=== PATIENT | female | born 1945 | race Caucasian/White ===

== ENCOUNTER → 2018-07-31 | Outpatient (CLI) | payer OTHER, BC | LOC: FIMAGING 12:23 | PROVIDERS: ATTEND Internal Medicine | DX: R10.9 Unspecified abdominal pain (principal); R11.0 Nausea ==

== ENCOUNTER → 2018-08-15 | Outpatient (CLI) | payer OTHER, BC | LOC: FIMAGING 11:46 | PROVIDERS: ATTEND Internal Medicine | DX: Z12.31 Encounter for screening mammogram for malignant neoplasm of breast (principal) ==

== ENCOUNTER 2018-08-23 14:41 | Emergency (ER) | payer OTHER, BC ==
--- NOTE | 2018-08-23 15:02 | EDPHY ---
H & P Stated Complaint: word finding difficulty Time Seen by Provider: 08/23/18 15:02 HPI/ROS: CHIEF COMPLAINT: Confusion, abnormal speech HISTORY OF PRESENT ILLNESS: The patient presents to the ED with increasing confusion abnormal speech for the past several days. The patient denies any chest pain or shortness of breath. She denies any focal numbness or weakness. The patient denies dysuria. The patient is accompanied by her daughter. There has been no history of fever, vomiting or acute abdominal pain. There have been no recent changes to medication other than the discontinuing of methotrexate several weeks ago for presumed connective tissue disorder. REVIEW OF SYSTEMS: A comprehensive 10 point review of systems is otherwise negative aside from elements mentioned in the history of present illness. Source: Patient - Personal History Current Tetanus/Diphtheria Vaccine: Yes Current Tetanus Diphtheria and Acellular Pertussis (TDAP): Yes - Medical/Surgical History Hx Asthma: No Hx Chronic Respiratory Disease: No Hx Diabetes: Yes Hx Cardiac Disease: No Hx Renal Disease: No Hx Cirrhosis: No Hx Alcoholism: No Hx HIV/AIDS: No Hx Splenectomy or Spleen Trauma: No Other PMH: HTN, DM, CKD stage 3 - Social History Smoking Status: Never smoked - Physical Exam Exam: General Appearance: Alert, no distress Eyes: Pupils equal and round no pallor or injection ENT, Mouth: Mucous membranes moist Respiratory: There are no retractions, lungs are clear to auscultation Cardiovascular: Regular rate and rhythm Gastrointestinal: Abdomen is soft and nontender, no masses, bowel sounds normal Neurological: Alert and orientedx1, moves all 4 extremities with 5/5 strength, cranial nerves 2-12 intact, patient appears to be somewhat confused with mild dysarthria noted Skin: Warm and dry, no rashes Musculoskeletal: Neck is supple nontender Extremities: symmetrical, full range of motion Psychiatric: Patient is oriented X 3, there is no agitation Constitutional: Initial Vital Signs Temperature (C) 36.8 C 08/23/18 14:49 Heart Rate 106 H 08/23/18 14:49 Respiratory Rate 16 08/23/18 14:49 Blood Pressure 166/105 H 08/23/18 14:49 O2 Sat (%) 96 08/23/18 14:49 O2 Delivery Mode Room Air Allergies/Adverse Reactions: iodine Allergy (Verified 08/23/18 14:49) latex Allergy (Verified 08/23/18 14:49) Penicillins Allergy (Verified 08/23/18 14:49) flu vaccine Allergy (Uncoded 08/23/18 14:49) Home Medications: Medication Instructions Recorded levOFLOXACIN [Levaquin] 500 mg PO DAILY #7 tab 08/23/18 Medical Decision Making - Diagnostics EKG Interpretation: EKG: Complete interpretation has been separately recorded in the [facility] archive. Summary impression: Sinus rhythm, rate 89, nonspecific T-wave changes present. Imaging Results: Imaging Impressions Brain MRI 08/23/18 16:02 Impression: Moderate periventricular and deep hemispheric white matter change, which is nonspecific and can be seen with small vessel ischemic disease. No evidence for acute infarct. Mild generalized cerebral atrophy. Results called and discussed with Dr. Ulices Wilkes on August 23, 2018 at 1724 hours. ED Course/Re-evaluation: The patient presents the emergency department with mild disorientation. The patient is noted to have a slight expressive aphasia. She has not had any symptoms of fever or urinary tract infection. No recent significant medication changes noted. The patient was taken for a brain MRI which demonstrated no evidence of an acute stroke. Metabolic workup is unrevealing. Patient informed of the results of MRI study at 5:45 p.m.. Still awaiting urinalysis. Urinalysis does demonstrate evidence of an infection. Patient is given 1 g of IV ceftriaxone. The patient is picture is likely consistent with mild encephalopathy from a UTI. She would like to be treated as an outpatient. Patient will be discharged home with a prescription for Levaquin Plan will be for follow-up with primary care and return to the ED for any worsening symptoms. Differential Diagnosis: Differential diagnosis considered includes dehydration, stroke, TIA, metabolic abnormality, urinary tract infection, DOUGH PANNER tumor - Data Points Laboratory Results: Laboratory Results 08/23/18 15:20 08/23/18 15:20 08/23/18 08/23/18 08/23/18 17:25 15:26 15:20 WBC RBC Hgb POC Hgb 11.9 gm/dL L gm/dL (12.6-16.3) Hct POC Hct 35 % L % (38-47) MCV MCH MCHC RDW Plt Count MPV Neut % (Auto) Lymph % (Auto) [place] % (Auto) Eos % (Auto) Baso % (Auto) Nucleat RBC Rel Count Absolute Neuts (auto) Absolute Lymphs (auto) Absolute Monos (auto) Absolute Eos (auto) Absolute Basos (auto) Absolute Nucleated RBC Immature Gran % Immature Gran # POC Sodium 141 mEq/L mEq/L (135-145) Sodium 139 mEq/L mEq/L (135-145) POC Potassium 3.8 mEq/L mEq/L (3.3-5.0) Potassium 4.1 mEq/L mEq/L (3.3-5.0) POC Chloride 108 mEq/L mEq/L (97-110) Chloride 107 mEq/L mEq/L (97-110) Carbon Dioxide 21 mEq/l L mEq/l (22-31) Anion Gap 11 mEq/L mEq/L (6-14) POC BUN 19 mg/dL mg/dL (7-23) BUN 19 mg/dL mg/dL (7-23) Creatinine 1.1 mg/dL H mg/dL (0.6-1.0) POC Creatinine 1.0 mg/dL mg/dL (0.6-1.0) Estimated GFR 49 Glucose 229 mg/dL H mg/dL (70-100) POC Glucose 234 mg/dL H mg/dL (70-100) Calcium 9.7 mg/dL mg/dL (8.5-10.4) Urine Color YELLOW Urine Appearance HAZY Urine pH 5.0 (5.0-7.5) Ur Specific [place] 1.021 (1.002-1.030) Urine Protein 1+ H (NEGATIVE) Urine Ketones NEGATIVE (NEGATIVE) Urine Blood NEGATIVE (NEGATIVE) Urine Nitrate NEGATIVE (NEGATIVE) Urine Bilirubin NEGATIVE (NEGATIVE) Urine Urobilinogen NEGATIVE EU EU (0.2-1.0) Ur Leukocyte Esterase TRACE H (NEGATIVE) Urine RBC 1-3 /hpf /hpf (0-3) Urine WBC 10-15 /hpf H /hpf (0-3) Ur Epithelial Cells TRACE /lpf /lpf (NONE-1+) Hyaline Casts 1-5 /lpf /lpf (0-1) Urine Mucus TRACE /lpf /lpf (NONE-1+) Urine Glucose 1+ H (NEGATIVE) 08/23/18 15:20 WBC 7.82 10^3/uL 10^3/uL (3.80-9.50) RBC 3.94 10^6/uL L 10^6/uL (4.18-5.33) Hgb 11.0 g/dL L g/dL (12.6-16.3) POC Hgb Hct 35.0 % L % (38.0-47.0) POC Hct MCV 88.8 fL fL (81.5-99.8) MCH 27.9 pg pg (27.9-34.1) MCHC 31.4 g/dL L g/dL (32.4-36.7) RDW 16.7 % H % (11.5-15.2) Plt Count 236 10^3/uL 10^3/uL (150-400) MPV 9.7 fL fL (8.7-11.7) Neut % (Auto) 48.6 % % (39.3-74.2) Lymph % (Auto) 38.7 % % (15.0-45.0) Kern % (Auto) 7.3 % % (4.5-13.0) Eos % (Auto) 4.7 % % (0.6-7.6) Baso % (Auto) 0.6 % % (0.3-1.7) Nucleat RBC Rel Count 0.0 % % (0.0-0.2) Absolute Neuts (auto) 3.79 10^3/uL 10^3/uL (1.70-6.50) Absolute Lymphs (auto) 3.03 10^3/uL H 10^3/uL (1.00-3.00) Absolute Monos (auto) 0.57 10^3/uL 10^3/uL (0.30-0.80) Absolute Eos (auto) 0.37 10^3/uL 10^3/uL (0.03-0.40) Absolute Basos (auto) 0.05 10^3/uL 10^3/uL (0.02-0.10) Absolute Nucleated RBC 0.00 10^3/uL 10^3/uL (0-0.01) Immature Gran % 0.1 % % (0.0-1.1) Immature Gran # 0.01 10^3/uL 10^3/uL (0.00-0.10) POC Sodium Sodium POC Potassium Potassium POC Chloride Chloride Carbon Dioxide Anion Gap POC BUN BUN Creatinine POC Creatinine Estimated GFR Glucose POC Glucose Calcium Urine Color Urine Appearance Urine pH Ur Specific [place] Urine Protein Urine Ketones Urine Blood Urine Nitrate Urine Bilirubin Urine Urobilinogen Ur Leukocyte Esterase Urine RBC Urine WBC Ur Epithelial Cells Hyaline Casts Urine Mucus Urine Glucose Point of Care Test Results: Chemistry 08/23/18 15:26 POC Sodium 141 mEq/L mEq/L (135-145) POC Potassium 3.8 mEq/L mEq/L (3.3-5.0) POC Chloride 108 mEq/L mEq/L (97-110) POC BUN 19 mg/dL mg/dL (7-23) POC Creatinine 1.0 mg/dL mg/dL (0.6-1.0) POC Glucose 234 mg/dL H mg/dL (70-100) ISTAT H&H 08/23/18 15:26 POC Hgb 11.9 gm/dL L gm/dL (12.6-16.3) POC Hct 35 % L % (38-47) Departure - Departure Disposition: Home, Routine, Self-Care Clinical Impression: Urinary tract infection Condition: Good Instructions: Urinary Tract Infection in Women (DC) Additional Instructions: 1. Please take antibiotics as directed for next 7 days. 2. Return to the ED for any fever, abdominal pain, vomiting, worsening confusion or other concerns. 3. Please follow-up with your primary care provider as needed. Referrals: Clayton Mandujano MD [Primary Care Provider] - As per Instructions Prescriptions: levOFLOXACIN [Levaquin] 500 mg PO DAILY #7 tab
[2018-08-23 15:32] LABS: PLATELET COUNT 236 10^3/uL (150-400)
--- NOTE | 2018-08-23 17:44 | CPEKG ---
Test Reason : OPEN Blood Pressure : / mmHG Vent. Rate : 089 BPM Atrial Rate : 089 BPM P-R Int : 167 ms QRS Dur : 092 ms QT Int : 407 ms P-R-T Axes : 037 -03 013 degrees QTc Int : 496 ms Sinus rhythm Borderline T abnormalities, anterior leads Borderline prolonged QT interval Confirmed by Ulices Wilkes ([id number]) on 08/23/2018 5:43:29 PM Referred By: Confirmed By:Ulices Wilkes
[2018-08-23 18:43] VITALS: BP 178/102
== END 2018-08-23 18:55 | disposition home or self-care (01) ==
DX: N39.0 Urinary tract infection, site not specified (principal); R41.0 Disorientation, unspecified; R47.89 Other speech disturbances; I12.9 Hypertensive chronic kidney disease with stage 1 through stage 4 chronic kidney disease, or unspecified chronic kidney disease; E11.9 Type 2 diabetes mellitus without complications; N18.3 Chronic kidney disease, stage 3 (moderate)
CPT/HCPCS: 70551; 93005; 96365; 99285; J0696; 82435-PO; 82565-PO; 82947-PO; 84132-PO; 84295-PO; 84520-PO; 85014-PO

== ENCOUNTER → 2018-08-31 | Outpatient (CLI) | payer OTHER, BC | LOC: FIMAGING 10:01 | PROVIDERS: ATTEND Internal Medicine | DX: N63.13 Unspecified lump in the right breast, lower outer quadrant (principal) ==

== ENCOUNTER 2018-09-17 15:50 | Observation (INO) | payer OTHER, BC ==
--- NOTE | 2018-09-17 16:15 | EDPHY ---
H & P Time Seen by Provider: 09/17/18 15:57 HPI/ROS: CHIEF COMPLAINT: Syncope HISTORY OF PRESENT ILLNESS: The patient is a 73-year-old female who presents emergency department after having a syncopal episode. Patient was in the grocery store with her . She felt suddenly weak. She told her that she would wait while he completed his shopping. The next thing she knew some was holding her head on the ground. She states that she struck her head when she fell. She has no headache at this time. No word-finding difficulty visual change. She denies any focal weakness or numbness. She had no chest pain or shortness of breath. No nausea or vomiting. REVIEW OF SYSTEMS: 10 systems were reveiwed and are negative with the exception of the elements mentioned in the history of present illness. Past Medical/Surgical History: Includes hypertension, diabetes, chronic kidney disease Past surgical history: Includes recent lumpectomy Smoking Status: Never smoked Physical Exam: Vitals noted GENERAL: No acute distress, alert. HEENT: Eyes normal to inspection, normal pharynx, no signs of dehydration. NECK: Normal, supple. RESPIRATORY: Clear to auscultation bilaterally, no rales, rhonchi or wheezing. CVS: Regular rate and rhythm, no rubs, murmurs, or gallops. ABDOMEN: Soft, nontender, nondistended, no organomegaly. BACK: Normal to inspection, no CVA tenderness. SKIN: Normal color, no rash, warm, dry. No pallor. EXTREMITIES: No pedal edema, no calf tenderness, no Homans sign or cords, no joint swelling. NEURO/PSYCH: Higher functions: Alert and Oriented x2. Normal speech and cognition. Normal mood and affect. Cranial nerves: Normal as tested. Cerebellar: Normal as tested. Normal coordination. Peripheral exam: Normal motor exam. Normal sensation. Constitutional: Initial Vital Signs Temperature (C) 36.7 C 09/17/18 15:50 Heart Rate 68 09/17/18 15:50 Respiratory Rate 12 09/17/18 15:50 Blood Pressure 107/68 09/17/18 15:50 O2 Sat (%) 95 09/17/18 15:50 O2 Delivery Mode Room Air Allergies/Adverse Reactions: iodine Allergy (Verified 08/23/18 14:49) latex Allergy (Verified 08/23/18 14:49) Penicillins Allergy (Verified 08/23/18 14:49) flu vaccine Allergy (Uncoded 08/23/18 14:49) Home Medications: Medication Instructions Recorded Metformin 1000 mg 09/17/18 Medical Decision Making - Diagnostics Imaging Results: Imaging Impressions Chest X-Ray 09/17/18 16:16 Impression: 1. No active cardiopulmonary disease seen. Head CT 09/17/18 16:16 Impression: 1. Mild atrophy. 2. No acute hemorrhage, hydrocephalus, or mass effect. 3. Cerebrovascular atherosclerosis. 4. No definite acute infarct. 5. Moderate microvascular ischemic gliosis. 6. No skull fracture. Findings and recommendations discussed with Emergency Department physician, BILL FERRELL at 16:36 hour, 09/17/2018. Final report concurs with initial preliminary interpretation. ED Course/Re-evaluation: In the emergency department I discussed possible etiologies with the patient. Answered all her questions. Laboratory studies, EKG and head CT were ordered. 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 This will causes her to be chronically anemic. I reviewed the patient's hospital record. She was admitted to the emergency department 08/23/2018 for confusion and abnormal speech. She subsequently had an MRI which did not show CVA. EKG shows normal sinus rhythm, normal rate, normal axis, normal intervals. There are no ST or T-wave abnormalities. EKG is normal as interpreted by me. CBC is unremarkable. Coags are normal. Patient's sodium slightly low 134. Creatinine mildly elevated at 1.4. LFTs are normal. Troponin is 0. Lipase is 166. Head CT: Please refer the dictated report. No traumatic injury. I discussed case with Dr. Hair from the hospitalist service. She will admit the patient. I discussed the plan with the patient answered all her questions. Differential Diagnosis: My differential includes but is not limited to ACS, acute SD, electrolyte abnormality, sugar abnormality, anemia, dissection, aneurysm, CVA - Data Points Laboratory Results: Laboratory Results 09/17/18 16:06 09/17/18 08:41 09/17/18 09/17/18 09/17/18 17:03 16:06 08:41 WBC 8.80 10^3/uL 10^3/uL (3.80-9.50) RBC 4.46 10^6/uL 10^6/uL (4.18-5.33) Hgb 12.5 g/dL L g/dL (12.6-16.3) Hct 37.6 % L % (38.0-47.0) MCV 84.3 fL fL (81.5-99.8) MCH 28.0 pg pg (27.9-34.1) MCHC 33.2 g/dL g/dL (32.4-36.7) RDW 14.9 % % (11.5-15.2) Plt Count 266 10^3/uL 10^3/uL (150-400) MPV 10.1 fL fL (8.7-11.7) Neut % (Auto) 54.2 % % (39.3-74.2) Lymph % (Auto) 36.0 % % (15.0-45.0) Story % (Auto) 5.7 % % (4.5-13.0) Eos % (Auto) 3.6 % % (0.6-7.6) Baso % (Auto) 0.3 % % (0.3-1.7) Nucleat RBC Rel Count 0.0 % % (0.0-0.2) Absolute Neuts (auto) 4.76 10^3/uL 10^3/uL (1.70-6.50) Absolute Lymphs (auto) 3.17 10^3/uL H 10^3/uL (1.00-3.00) Absolute Monos (auto) 0.50 10^3/uL 10^3/uL (0.30-0.80) Absolute Eos (auto) 0.32 10^3/uL 10^3/uL (0.03-0.40) Absolute Basos (auto) 0.03 10^3/uL 10^3/uL (0.02-0.10) Absolute Nucleated RBC 0.00 10^3/uL 10^3/uL (0-0.01) Immature Gran % 0.2 % % (0.0-1.1) Immature Gran # 0.02 10^3/uL 10^3/uL (0.00-0.10) PT INR APTT Sodium 134 mEq/L L mEq/L (135-145) Potassium 4.4 mEq/L mEq/L (3.3-5.0) Chloride 101 mEq/L mEq/L (97-110) Carbon Dioxide 21 mEq/l L mEq/l (22-31) Anion Gap 12 mEq/L mEq/L (6-14) BUN 25 mg/dL H mg/dL (7-23) Creatinine 1.4 mg/dL H mg/dL (0.6-1.0) Estimated GFR 37 Glucose 292 mg/dL H mg/dL (70-100) Calcium 9.5 mg/dL mg/dL (8.5-10.4) Total Bilirubin 0.8 mg/dL mg/dL (0.1-1.4) Conjugated Bilirubin 0.3 mg/dL mg/dL (0.0-0.5) Unconjugated Bilirubin 0.5 mg/dL mg/dL (0.0-1.1) AST 23 IU/L IU/L (14-46) ALT 22 IU/L IU/L (9-52) Alkaline Phosphatase 109 IU/L IU/L (38-126) POC Troponin I 0.00 ng/mL ng/mL (0.00-0.08) NT-Pro-B Natriuret Pep < 11 pg/mL pg/mL (0-125) Total Protein 8.0 g/dL g/dL (6.3-8.2) Albumin 4.3 g/dL g/dL (3.5-5.0) Lipase 166 IU/L IU/L (23-300) 09/17/18 08:41 WBC RBC Hgb Hct MCV MCH MCHC RDW Plt Count MPV Neut % (Auto) Lymph % (Auto) Story % (Auto) Eos % (Auto) Baso % (Auto) Nucleat RBC Rel Count Absolute Neuts (auto) Absolute Lymphs (auto) Absolute Monos (auto) Absolute Eos (auto) Absolute Basos (auto) Absolute Nucleated RBC Immature Gran % Immature Gran # PT 13.1 SEC SEC (12.0-15.0) INR 0.97 (0.83-1.16) APTT 28.3 SEC SEC (23.0-38.0) Sodium Potassium Chloride Carbon Dioxide Anion Gap BUN Creatinine Estimated GFR Glucose Calcium Total Bilirubin Conjugated Bilirubin Unconjugated Bilirubin AST ALT Alkaline Phosphatase POC Troponin I NT-Pro-B Natriuret Pep Total Protein Albumin Lipase Medications Given: Discontinued Medications Sodium Chloride (Ns) 500 mls @ 1,000 mls/hr IV EDNOW ONE PRN Reason: Protocol Stop: 09/17/18 16:45 Last Admin: 09/17/18 17:00 Dose: 500 mls Point of Care Test Results: Chemistry 09/17/18 17:03 POC Troponin I 0.00 ng/mL ng/mL (0.00-0.08) Departure - Departure Disposition: [facility] Inpatient Acute Clinical Impression: Syncope Qualifiers: Syncope type: unspecified Qualified Code(s): R55 - Syncope and collapse Condition: Good Referrals: Patient,NotPresent [Unknown] - As per Instructions
[2018-09-17] MEDS ORDERED: NS 500 ML IV ONE (16:16)
[2018-09-17 16:23] LABS: PLATELET COUNT 266 10^3/uL (150-400)
[2018-09-17 16:41] LABS: INR 0.97 (0.83-1.16); PROTIME(PATIENT) 13.1 SEC (12.0-15.0)
[2018-09-17] MEDS ORDERED: HYDROmorphONE/DILAUDID 1 MG/ML INJ IVP PRN (17:43)
[2018-09-17] MEDS ORDERED: ONDANSETRON 4 MG/2 ML VIAL IVP PRN (17:43)
[2018-09-17] MEDS ORDERED: ACETAMINOPHEN 325 MG TAB PO PRN (17:43)
[2018-09-17] MEDS ORDERED: oxyCODONE IR 5 MG TAB PO PRN (17:43)
[2018-09-17] MEDS ORDERED: ONDANSETRON DISINTEGRATING 4 MG TAB PO PRN (17:43)
[2018-09-17] MEDS ORDERED: D50W 25 GM/50 ML SYR IVP PRN (18:31)
--- NOTE | 2018-09-17 18:37 | PDGENHP ---
<Kati Correa - Last Filed: 09/17/18 19:12> History and Physical - Chief Complaint "I fell down." - History of Present Illness 73 y/o female with recent right breast lumpectomy presents to the ED after sustaining mechanical fall d/t syncopal episode. Subsequently, she hit the back of her head and LOC. The fall was witnessed by her , Cirilo, while at the grocery store. She was pushing the cart and began to feel weak and dizzy , telling Cirilo she would wait for him at the front while he continues to shop. The next thing she knew, she woke up with Cirilo holding her head. She denies vision changes, lightheadedness, chest pains, SOB, N/V, fever, chills, dysuria. She is alert and oriented. No neuro abnormalities observed. Denies pain. BUE/BLE full ROM, BLE motor strength 4/5. Head CT: No traumatic injury. EKG: NSR CXR: No active cardiopulmonary processes. On 08/23/18, she was seen in the ED for increased confusion and weakness. She had a UTI and was treated with Levaquin PO and discharged from ED. Work up for CVA was negative. Past Medical/Surgical History 1. Hypertension 2. Diabetes 3. CKD III 4. Recent right lumpectomy 5. Dermatomyositis Social 1. , Cirilo, and pt live in [place] 2. Denies tobacco or illicit drug use. Rarely drinks alcohol. Vital Signs 141/77 68 HR 14 Respirations 96% RA 36.7c History Information - Allergies/Home Medication List Allergies/Adverse Reactions: iodine Allergy (Verified 08/23/18 14:49) latex Allergy (Verified 08/23/18 14:49) Penicillins Allergy (Verified 08/23/18 14:49) flu vaccine Allergy (Uncoded 08/23/18 14:49) Home Medications: Atorvastatin Calcium [Lipitor 10 mg (*)] 10 mg PO DAILY 09/17/18 [Last Taken 12/31] Bisoprolol/Hctz 10/6.25MG [Ziac 10/6.25MG (*)] 1 each PO DAILY 09/17/18 [Last Taken 09/17/18] Herbals/Supplements -Info Only 1 ea PO DAILY 09/17/18 [Last Taken Unknown] Levothyroxine [Synthroid 75 mcg (*)] 75 mcg PO DAILY06 09/17/18 [Last Taken 12/31] Metformin HCl [Metformin 1000 mg] 1,000 mg PO DAILY 09/17/18 [Last Taken ] hydrOXYzine HCL [hydrOXYzine HCL (RX)] 25 mg PO Q8 PRN 09/17/18 [Last Taken 12/31] I have personally reviewed and updated: family history, medical history, social history, surgical history Past Medical History: See HPI List - Surgical History Additional surgical history: See HPI List - Family History Positive for: non-pertinent - Social History Smoking Status: Never smoked Alcohol Use: Rarely Drug Use: None Review of Systems Review of Systems: ROS: 10pt was reviewed & negative except for what was stated in HPI & below Constitutional: Reports: recent injury EENMT: Reports: no symptoms Cardiac: Reports: no symptoms Respiratory: Reports: no symptoms Gastrointestinal: Reports: no symptoms Genitourinary: Reports: no symptoms Muscolosketal: Reports: no symptoms Skin: Reports: no symptoms Neurological: Reports: weakness Hematologic/Lymphatic: Reports: no symptoms Immunologic/Allergy: Reports: no symptoms Physical Exam Physical Exam: Lab results and imaging reviewed Temp Pulse Resp BP Pulse Ox 36.7 C 68 14 141/77 H 96 09/17/18 17:54 09/17/18 17:54 09/17/18 17:54 09/17/18 17:54 09/17/18 17:54 Constitutional: no apparent distress, appears nourished, not in pain Eyes: PERRL, anicteric sclera, EOMI Ears, Nose, Mouth, Throat: moist mucous membranes, hearing normal, ears appear normal, no oral mucosal ulcers Cardiovascular: regular rate and rhythym, no murmur, rub, or gallop, No edema Peripheral Pulses: 2+: dorsalis-pedis (R) (Radial 2+), dorsalis-pedis (L) ( Radial 2+) Respiratory: no respiratory distress, no rales or rhonchi, clear to auscultation Gastrointestinal: soft, non-tender abdomen, no palpable masses, other ( Hypoactive bowel sounds) Skin: warm, normal color, no rashes or abrasions, no fluctuance, no induration, No mottled Musculoskeletal: no muscle tenderness, normal joint ROM, no joint effusions, generalized weakness, other (BLE motor strength 4/5) Neurologic: AAOx3, sensation intact bilaterally, weakness, CN II-XII Intact Psychiatric: interacting appropriately, not anxious, not encephalopathic, thought process linear Lymph, Heme, Immunologic: no cervical LAD, no supraclavicular LAD Lab Data & Imaging Review 09/17/18 16:06 09/17/18 08:41 WBC 8.80 10^3/uL (3.80-9.50) 09/17/18 16:06 RBC 4.46 10^6/uL (4.18-5.33) 09/17/18 16:06 Hgb 12.5 g/dL (12.6-16.3) L 09/17/18 16:06 Hct 37.6 % (38.0-47.0) L 09/17/18 16:06 MCV 84.3 fL (81.5-99.8) 09/17/18 16:06 MCH 28.0 pg (27.9-34.1) 09/17/18 16:06 MCHC 33.2 g/dL (32.4-36.7) 09/17/18 16:06 RDW 14.9 % (11.5-15.2) 09/17/18 16:06 Plt Count 266 10^3/uL (150-400) 09/17/18 16:06 MPV 10.1 fL (8.7-11.7) 09/17/18 16:06 Neut % (Auto) 54.2 % (39.3-74.2) 09/17/18 16:06 Lymph % (Auto) 36.0 % (15.0-45.0) 09/17/18 16:06 [place] % (Auto) 5.7 % (4.5-13.0) 09/17/18 16:06 Eos % (Auto) 3.6 % (0.6-7.6) 09/17/18 16:06 Baso % (Auto) 0.3 % (0.3-1.7) 09/17/18 16:06 Nucleat RBC Rel Count 0.0 % (0.0-0.2) 09/17/18 16:06 Absolute Neuts (auto) 4.76 10^3/uL (1.70-6.50) 09/17/18 16:06 Absolute Lymphs (auto) 3.17 10^3/uL (1.00-3.00) H 09/17/18 16:06 Absolute Monos (auto) 0.50 10^3/uL (0.30-0.80) 09/17/18 16:06 Absolute Eos (auto) 0.32 10^3/uL (0.03-0.40) 09/17/18 16:06 Absolute Basos (auto) 0.03 10^3/uL (0.02-0.10) 09/17/18 16:06 Absolute Nucleated RBC 0.00 10^3/uL (0-0.01) 09/17/18 16:06 Immature Gran % 0.2 % (0.0-1.1) 09/17/18 16:06 Immature Gran # 0.02 10^3/uL (0.00-0.10) 09/17/18 16:06 PT 13.1 SEC (12.0-15.0) 09/17/18 08:41 INR 0.97 (0.83-1.16) 09/17/18 08:41 APTT 28.3 SEC (23.0-38.0) 09/17/18 08:41 Sodium 134 mEq/L (135-145) L 09/17/18 08:41 Potassium 4.4 mEq/L (3.3-5.0) 09/17/18 08:41 Chloride 101 mEq/L (97-110) 09/17/18 08:41 Carbon Dioxide 21 mEq/l (22-31) L 09/17/18 08:41 Anion Gap 12 mEq/L (6-14) 09/17/18 08:41 BUN 25 mg/dL (7-23) H 09/17/18 08:41 Creatinine 1.4 mg/dL (0.6-1.0) H 09/17/18 08:41 Estimated GFR 37 09/17/18 08:41 Glucose 292 mg/dL (70-100) H 09/17/18 08:41 Calcium 9.5 mg/dL (8.5-10.4) 09/17/18 08:41 Total Bilirubin 0.8 mg/dL (0.1-1.4) 09/17/18 08:41 Conjugated Bilirubin 0.3 mg/dL (0.0-0.5) 09/17/18 08:41 Unconjugated Bilirubin 0.5 mg/dL (0.0-1.1) 09/17/18 08:41 AST 23 IU/L (14-46) 09/17/18 08:41 ALT 22 IU/L (9-52) 09/17/18 08:41 Alkaline Phosphatase 109 IU/L (38-126) 09/17/18 08:41 POC Troponin I 0.00 ng/mL (0.00-0.08) 09/17/18 17:03 NT-Pro-B Natriuret Pep < 11 pg/mL (0-125) 09/17/18 08:41 Total Protein 8.0 g/dL (6.3-8.2) 09/17/18 08:41 Albumin 4.3 g/dL (3.5-5.0) 09/17/18 08:41 Lipase 166 IU/L (23-300) 09/17/18 08:41 Assessment & Plan Plan: 73 y/o female presents today after a syncopal episode. 1. Syncope -Echo -Orthostatic vitals one time -Tele monitoring -Cycle trop 2. Generalized weakness -PT/OT 3. Chronic anemia: per pt, this is d/t dermatomyositis. However, this is a possible cause to her syncope as symptom is weakness. -CRP pending -Sed Rate pending 4. Hyponatremic -Mild; 134 -IVF; CBC tomorrow 5. Hypertension -Continue to monitor 6. Diabetes -Holding metformin -Use insulin sliding scale Diet: Carb-Controlled VTE ppx: SCDs Code: Full Dispo: Admit to obs <Jimbo Hair - Last Filed: 09/17/18 22:05> History and Physical - History of Present Illness Review of Systems Review of Systems: Physical Exam Physical Exam: Temp Pulse Resp BP Pulse Ox 36.3 C 80 14 147/75 H 95 09/17/18 18:40 12 18:40 12 18:40 09/17/18 18:40 09/17/18 18:40 Lab Data & Imaging Review 09/17/18 20:10 09/17/18 08:41 WBC 8.80 10^3/uL (3.80-9.50) 09/17/18 16:06 RBC 4.46 10^6/uL (4.18-5.33) 09/17/18 16:06 Hgb 12.5 g/dL (12.6-16.3) L 09/17/18 16:06 Hct 38.4 % (38.0-47.0) 09/17/18 20:10 MCV 84.3 fL (81.5-99.8) 09/17/18 16:06 MCH 28.0 pg (27.9-34.1) 09/17/18 16:06 MCHC 33.2 g/dL (32.4-36.7) 09/17/18 16:06 RDW 14.9 % (11.5-15.2) 09/17/18 16:06 Plt Count 266 10^3/uL (150-400) 09/17/18 16:06 MPV 10.1 fL (8.7-11.7) 09/17/18 16:06 Neut % (Auto) 54.2 % (39.3-74.2) 09/17/18 16:06 Lymph % (Auto) 36.0 % (15.0-45.0) 09/17/18 16:06 [place] % (Auto) 5.7 % (4.5-13.0) 09/17/18 16:06 Eos % (Auto) 3.6 % (0.6-7.6) 09/17/18 16:06 Baso % (Auto) 0.3 % (0.3-1.7) 09/17/18 16:06 Nucleat RBC Rel Count 0.0 % (0.0-0.2) 09/17/18 16:06 Absolute Neuts (auto) 4.76 10^3/uL (1.70-6.50) 09/17/18 16:06 Absolute Lymphs (auto) 3.17 10^3/uL (1.00-3.00) H 09/17/18 16:06 Absolute Monos (auto) 0.50 10^3/uL (0.30-0.80) 09/17/18 16:06 Absolute Eos (auto) 0.32 10^3/uL (0.03-0.40) 09/17/18 16:06 Absolute Basos (auto) 0.03 10^3/uL (0.02-0.10) 09/17/18 16:06 Absolute Nucleated RBC 0.00 10^3/uL (0-0.01) 09/17/18 16:06 Immature Gran % 0.2 % (0.0-1.1) 09/17/18 16:06 Immature Gran # 0.02 10^3/uL (0.00-0.10) 09/17/18 16:06 ESR 47 MM/HR (0-30) H 09/17/18 20:10 PT 13.1 SEC (12.0-15.0) 09/17/18 08:41 INR 0.97 (0.83-1.16) 09/17/18 08:41 APTT 28.3 SEC (23.0-38.0) 09/17/18 08:41 Sodium 134 mEq/L (135-145) L 09/17/18 08:41 Potassium 4.4 mEq/L (3.3-5.0) 09/17/18 08:41 Chloride 101 mEq/L (97-110) 09/17/18 08:41 Carbon Dioxide 21 mEq/l (22-31) L 09/17/18 08:41 Anion Gap 12 mEq/L (6-14) 09/17/18 08:41 BUN 25 mg/dL (7-23) H 09/17/18 08:41 Creatinine 1.4 mg/dL (0.6-1.0) H 09/17/18 08:41 Estimated GFR 37 09/17/18 08:41 Glucose 292 mg/dL (70-100) H 09/17/18 08:41 POC Glucose 272 mg/dL (70-100) H 09/17/18 20:42 Calcium 9.5 mg/dL (8.5-10.4) 09/17/18 08:41 Total Bilirubin 0.8 mg/dL (0.1-1.4) 09/17/18 08:41 Conjugated Bilirubin 0.3 mg/dL (0.0-0.5) 09/17/18 08:41 Unconjugated Bilirubin 0.5 mg/dL (0.0-1.1) 09/17/18 08:41 AST 23 IU/L (14-46) 09/17/18 08:41 ALT 22 IU/L (9-52) 09/17/18 08:41 Alkaline Phosphatase 109 IU/L (38-126) 09/17/18 08:41 POC Troponin I 0.00 ng/mL (0.00-0.08) 09/17/18 17:03 Troponin I < 0.012 ng/mL (0.000-0.034) 09/17/18 20:18 C-Reactive Protein < 5.0 mg/L (<10.0) 09/17/18 20:18 NT-Pro-B Natriuret Pep < 11 pg/mL (0-125) 09/17/18 08:41 Total Protein 8.0 g/dL (6.3-8.2) 09/17/18 08:41 Albumin 4.3 g/dL (3.5-5.0) 09/17/18 08:41 Lipase 166 IU/L (23-300) 09/17/18 08:41 TSH 0.053 uIU/mL (0.465-4.680) L 09/17/18 20:18 Assessment & Plan Assessment: Syncope (Acute) Plan: Patient seen and evaluated independently and care plan reviewed with APOLINAR Correa. Agree with her assessment and plan as outlined above. Please see separate note for further details.
[2018-09-17] MEDS: NS 1,000 ML IV SCH (19:09)
--- NOTE | 2018-09-17 19:55 | CPEKG ---
Test Reason : OPEN Blood Pressure : / mmHG Vent. Rate : 066 BPM Atrial Rate : 065 BPM P-R Int : 181 ms QRS Dur : 096 ms QT Int : 448 ms P-R-T Axes : 047 010 039 degrees QTc Int : 470 ms Sinus rhythm Confirmed by Sahara Faust ([id number]) on 09/17/2018 7:54:48 PM Referred By: Confirmed By:Sahara Faust
[2018-09-17] MEDS: hydrOXYzine HCL 25 MG TAB PO PRN (20:29)
--- NOTE | 2018-09-17 22:11 | HOSPPROG ---
Hospitalist Progress Note Assessment/Plan: 73 yo F with hx of DM, HTN and CKD presenting with syncope # syncope: patient notes she has had lightheadedness when she stands/walks in the past as well as today. She did have some prodromal sxs prior to her LOC and sustained no significant injuries, orthostatics were negative. She did present recently to this ER with brief neurologic sxs and brain MRI performed at that time which was negative. Today she has had head CT, chest xray and ecg which were personally reviewed and normal. Plan will be to monitor on tele overnight, echocardiogram in the am, serial trops and if all remains negative likely dc in am. This was likely vagal event. 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 Old records reviewed and summarized as above. Care plan reviewed with ER doctor as above. Care plan reviewed with APOLINAR Correa, patient evaluated independently. Please see H& P by APOLINAR Correa for further details. Objective: Vital Signs Temp Pulse Resp BP Pulse Ox 36.3 C 80 14 147/75 H 95 09/17/18 18:40 09/17/18 18:40 09/17/18 18:40 09/17/18 18:40 09/17/18 18:40 Laboratory Results 09/17/18 20:10 09/16/18 09/17/18 09/18/18 05:59 05:59 05:59 Intake Total 500 Balance 500 PT 13.1 SEC (12.0-15.0) 09/17/18 08:41 INR 0.97 (0.83-1.16) 09/17/18 08:41 ICD10 Worksheet Patient Problems: Problems Problem Status Onset Syncope Acute
[2018-09-18] MEDS: hydrOXYzine HCL 25 MG TAB PO PRN (05:04)
[2018-09-18] MEDS: NS 1,000 ML IV SCH (05:04)
[2018-09-18] MEDS ORDERED: LEVOTHYROXINE 75 MCG TAB PO SCH (06:00)
[2018-09-18] MEDS: INSULIN LISPRO 100 UNIT/ML SC SCH ×2 (08:31→14:00)
[2018-09-18] MEDS ORDERED: BISOPROLOL/HCTZ 10/6.25MG 1 EACH TAB PO SCH (09:00)
[2018-09-18] MEDS ORDERED: ATORVASTATIN CALCIUM 10 MG TAB PO SCH (09:00)
--- NOTE | 2018-09-18 10:50 | HOSPPROG ---
Hospitalist Progress Note Assessment/Plan: 73 yo F with hx of DM, HTN and CKD presenting with syncope. First encounter, chart reviewed. *syncope -tele shows sinus rhythm -CT scan shows nothing acute -echo shows no LVH, ef of 74%, no wall motion abnormalities -she describes her legs giving out while shopping and felt lightheaded, she had not eaten prior/? if she had a low bp or low glucose *CKD -creat is higher than her baseline *htn -on meds *DM -on Metformin bid, GFR is borderline for this medication -glucoses consistently high -nursing staff to teach her how to check her glucoses and give herself insulin *Dermatomyositis -seeing Dr Jordan for this *hypothyroidism -TSH is low but detectable -recommending decreasing Synthroid dose and get this level rechecked in 6 weeks *recent weight loss -had an egd and colonoscopy recently w Dr Nixon, per the family, she had a poyp *Plan: will see how she does through out the day; her nurse, Princess, will show her how to check her glucoses and take insulin. Subjective: nedra is feeling fine today, has no specific complaints. Objective: Vital Signs Temp Pulse Resp BP Pulse Ox 36.6 C 69 16 150/97 H 97 09/18/18 08:15 09/18/18 08:15 09/18/18 08:15 09/18/18 08:15 09/18/18 08:15 Laboratory Results 09/18/18 04:55 09/18/18 04:55 09/17/18 09/18/18 09/19/18 05:59 05:59 05:59 Intake Total 1700 Balance 1700 PT 13.1 SEC (12.0-15.0) 09/17/18 08:41 INR 0.97 (0.83-1.16) 09/17/18 08:41 - Physical Exam Constitutional: no apparent distress, chronically ill appearing Eyes: PERRL Ears, Nose, Mouth, Throat: hearing normal Cardiovascular: regular rate and rhythym, no murmur, rub, or gallop Respiratory: no respiratory distress Gastrointestinal: normoactive bowel sounds Skin: warm Neurologic: AAOx3 Psychiatric: interacting appropriately, not anxious ICD10 Worksheet Patient Problems: Problems Problem Status Onset Syncope Acute
--- NOTE | 2018-09-18 12:22 | ASMTCMCOM ---
CM Note CM Note Notes: Pt is a 73 y/o female admitted for syncope. Therapies have been ordered and awaiting recommendations. Needs are TBD at this time. CM to follow. Plan: TBD Date Signed: 09/18/2018 12:21 PM Electronically Signed By:RUPERT Ramirez
[2018-09-18 12:28] VITALS: BP 163/77
--- NOTE | 2018-09-18 15:25 | ASMTCMCOM ---
CM Note CM Note Notes: CM spoke to Sherie Lake NP. Pt is being discharged today. CM met w/ pt and for dispo planning. OT eval and recommending home without any needs. Pt and are not interested in HC at this time. Pt understands that if she changes her mind she can call her PCP to order HC. CM available for changes. Plan: Independent Date Signed: 09/18/2018 03:24 PM Electronically Signed By:RUPERT Ramirez
--- NOTE | 2018-09-18 15:25 | ASMTLACE ---
LACE Length of stay for Answers: 1 day current admission Acuity / Level of Answers: No Care: Did the patient have an inpatient admission? Comorbidities - select Answers: Diabetes (uncontrolled or all that apply controlled) Mild liver or renal disease Other Notes: HTN # of Emergency department Answers: 1-2 visits in the last 6 months Score: 6 Date Signed: 09/18/2018 03:25 PM Electronically Signed By:RUPERT Ramirez
--- NOTE | 2018-09-18 18:32 | GDS ---
DISCHARGE DIAGNOSES: 1. Syncopal event. 2. Chronic kidney disease. 3. Hypertension. 4. Diabetes. 5. Dermatomyositis. 6. Hypothyroidism. 7. Recent weight loss. HISTORY: Briefly, the patient is a 73-year-old female, originally from the [place] area, who presented to the emergency room after sustaining a mechanical fall due to a syncopal event. She hit the back of her head and had some loss of consciousness. She was pushing a cart and began to feel weak and dizzy. The next thing she knew, she woke up with her holding her head. She denied any vision changes, lightheadedness, chest pains or shortness of breath. She did tell me that she felt dizzy for a moment. She also said she had not eaten anything prior to their visit to the grocery store. HOSPITAL COURSE: 1. Syncopal episode. I reviewed her monitoring tech. She has been in sinus rhythm. She did hit her head. The CT scan showed nothing acute. I reviewed her echocardiogram, which showed no LVH, with an EF of 74%, without regional wall abnormalities. Question if maybe she had low glucose or low blood pressure causing these symptoms. 2. Chronic kidney disease. Her creatinine is higher than her baseline. Will hold her metformin until she follows up with her PCP. 3. Hypertension. Resumed her home medications. 4. Diabetes mellitus. She is on metformin. Her GFR is borderline for this medication. The nursing staff has taught her how to check her glucoses and give herself insulin and follow up with her doctor. 5. Dermatomyositis. She is seeing Dr. Jordan for this. 6. Hypothyroidism. TSH is low, but detectable. Recommending decreasing Synthroid dose when she sees her doctor and get this rechecked. 7. Recent weight loss. Per the patient's daughter, she had an EGD and colonoscopy with Dr. Nixon that noted a polyp, but nothing significant. DISCHARGE CONDITION: Stable. Blood pressure is 163/77. Heart rate is 64. Respiratory rate is 16. O2 sats on room air are 96%. Temperature is 36.5 Celsius. DISCHARGE MEDICATIONS: Please see the EMR. DISCHARGE INSTRUCTIONS: 1. To eat a diabetic diet. 2. Check her blood pressure daily and keep a record. 3. Talk to Dr. Mandujano about her metformin with her chronic kidney disease, recommending she hold it for now. 4. Check her glucoses before meals and at bedtime and keep a record. 5. If she has any further syncopal episodes; to return to the ER. 6. To get her TSH rechecked in 6 weeks. 7. To be sure she eats and stay well hydrated through out the day. 8. Recommend she use a front-wheeled walker until she is more steady on her feet. 9. If her glucose is less than 50, drink orange juice. If it is greater than 350, call her doctor. Copy requested to: Dr. Mandujano /[id number]/MODL MTDD
== END 2018-09-18 16:42 | disposition home or self-care (01) ==
LOC: EDUNIT# → F3E 18:51
PROVIDERS: ADMIT Internal Medicine; ATTEND Internal Medicine
DX: R55 Syncope and collapse (principal); S06.9X9A Unspecified intracranial injury with loss of consciousness of unspecified duration, initial encounter; N18.9 Chronic kidney disease, unspecified; I12.9 Hypertensive chronic kidney disease with stage 1 through stage 4 chronic kidney disease, or unspecified chronic kidney disease; E11.9 Type 2 diabetes mellitus without complications; R63.4 Abnormal weight loss; W19.XXXA Unspecified fall, initial encounter; Y93.89 Activity, other specified; Y92.512 Supermarket, store or market as the place of occurrence of the external cause; E03.9 Hypothyroidism, unspecified; M33.10 Other dermatomyositis, organ involvement unspecified; Z79.84 Long term (current) use of oral hypoglycemic drugs; Z91.040 Latex allergy status; Z88.0 Allergy status to penicillin
CPT/HCPCS: 70450; 71046; 92523; 93005; 96372; 97161; 97165; 97535; 99285; G0378; G8978; G8979; G8980; G9168; G9169; G9170; J1815; 84484-PO; G8987-GO-CI; G8988-GO-CI; G8989-GO-CI

== ENCOUNTER → 2018-12-27 | Outpatient (CLI) | payer OTHER, BC | LOC: BHFA 09:30 | PROVIDERS: ATTEND Internal Medicine Cardiovascular Disease | DX: R55 Syncope and collapse (principal) | CPT/HCPCS: 78452; 93017; A9500; J2785 ==

== ENCOUNTER 2019-02-28 06:01 | Day surgery (SDC) | payer OTHER, BC ==
--- NOTE | 2019-02-28 05:36 | POSTANESTH ---
Post Anesthetic Evaluation Cardiovascular Status: Normal, Stable Respiratory Status: Normal, Stable Level of Consciousness/Mental Status: Can Participate in Eval, Mildly Sleepy, Arousable Pain Control: Adequate, Prn Tx Ordered (Pt is having back pain from required supine position after groin access. Will treat with Tylenol) Nausea/Vomiting Control: Adequate, Prn Tx Ordered Complications Possibly Related to Anesthesia: None Noted
--- NOTE | 2019-02-28 05:39 | PDANEPAE ---
ANE History of Present Illness 73 yo female for EP study, possible ICD placement. ANE Past Medical History - Cardiovascular History Hx Hypertension: Yes Hx Arrhythmias: Yes Hx Chest Pain: No Hx Coronary Artery / Peripheral Vascular Disease: No Hx CHF / Valvular Disease: No Hx Palpitations: No Cardiovascular History Comment: anemia - Pulmonary History Hx COPD: No Hx Asthma/Reactive Airway Disease: No Hx Recent Upper Respiratory Infection: Yes Hx Oxygen in Use at Home: No Hx Sleep Apnea: No Pulmonary History Comment: recent bronchitis, s/p Abx, cough now gone x 7 days - Endocrine History Hx Diabetes: Yes Hypothyroid: Yes Hyperthyroid: No Obesity: mild Endocrine History Comment: was on metformin, switched to insulin in 2018 for poor glucose control/CKD - Renal History Hx Renal Disorders: Yes Renal History Comment: CKD, CR 1.3, GFR 40 on 02/04/19 - Liver History Hx Hepatic Disorders: No - Chronic Pain History Chronic Pain: No ANE Review of Systems Review of Systems: - Systems Cardiac: Reports: syncope (few episodes of syncope) Respiratory: Reports: cough (productive cough 2 weeks ago) ANE Patient History - Allergies Allergies/Adverse Reactions: hydroxychloroquine Allergy (Verified 02/28/19 07:02) iodine Allergy (Verified 08/23/18 14:49) latex Allergy (Verified 08/23/18 14:49) Penicillins Allergy (Verified 08/23/18 14:49) pneumococcal vaccine Allergy (Verified 02/28/19 07:02) prednisone Allergy (Verified 02/28/19 07:03) flu vaccine Allergy (Uncoded 08/23/18 14:49) - Home Medications Home Medications: Atorvastatin Calcium [Lipitor 10 mg (*)] 10 mg PO DAILY 09/17/18 [Last Taken 08:00] Bisoprolol/Hctz 10/6.25MG [Ziac 10/6.25MG (*)] 1 each PO DAILY 09/17/18 [Last Taken 02/27/19 08:00] Herbals/Supplements -Info Only 1 ea PO DAILY 09/17/18 [Last Taken 02/27/19 08:00 ] Losartan Potassium 25 mg PO DAILY 02/28/19 [Last Taken Unknown] Mycophenolate Mofetil 500 mg PO BID 02/28/19 [Last Taken 02/27/19 17:00] - NPO status NPO Since - Liquids (Date): 02/28/19 NPO Since - Liquids (Time): 05:45 - Anes Hx Anes Hx: no prior problems - Smoking Hx Smoking Status: Never smoked - Alcohol Use Alcohol Use: Occasionally ANE Labs/Vital Signs - Labs Result Diagrams: 02/28/19 06:40 02/28/19 06:40 - Vital Signs Vital Signs: reviewed preoperatively; see RN documention for details ANE Physical Exam - Airway Neck exam: FROM Mallampati Score: Class 2 Mouth exam: normal dental/mouth exam - Pulmonary Pulmonary: clear to auscultation - Cardiovascular Cardiovascular: regular rate and rhythym - ASA Status ASA Status: III ANE Anesthesia Plan Anesthesia Plan: GA with mask Total IV Anesthesia: Yes
[2019-02-28] MEDS ORDERED: NS 1,000 ML IV ONE (06:11)
[2019-02-28] MEDS ORDERED: BACITRACIN IRRIGATION/NS 50,000 UNITS/1,000 ML BTL IRR ONE (06:11)
[2019-02-28] MEDS ORDERED: ceFAZolin 2 GM/DEXTROSE 100 ML IV ONE (06:11)
[2019-02-28 06:57] LABS: PLATELET COUNT 182 10^3/uL (150-400)
[2019-02-28 07:05] LABS: INR 0.94 (0.83-1.16); PROTIME(PATIENT) 12.2 SEC (12.0-15.0)
[2019-02-28] MEDS ORDERED: LIDOCAINE 1% 300 MG/30 ML SDV ONE ×2 (07:09→07:28)
[2019-02-28] MEDS ORDERED: ISOPROTERENOL HCL/D5W 0.2 MG/50 ML BAG IV ONE (07:10)
[2019-02-28] MEDS ORDERED: BUPIVACAINE 0.5% 30 ML SDV ONE ×2 (07:10→07:28)
--- NOTE | 2019-02-28 07:23 | PDGENHP ---
History & Physical Chief Complaint: syncope, VT on monitor History of Present Illness: recurrent syncope (concerning for vasovagal mechanism), with incidentally noted VT on monitor Relevant Physical Exam: A+Ox4, RR/NR, no MRG, CTAB, no focal deficits Cardiorespiratory Assessment: syncope, suspect vasovagal, with incidentally noted VT on monitor -> EPS for VT inducibility, followed by implantation of ICD (if positive) vs ILR (if negative)
[2019-02-28] MEDS ORDERED: PROPOFOL/EMULSION 500 MG/50 ML BOTTLE IV ONE ×2 (07:27→07:28)
[2019-02-28] MEDS ORDERED: HEPARIN 10,000 UNIT/10 ML MDV (1,000 UNIT/ML) ONE (07:28)
[2019-02-28] MEDS ORDERED: NALOXONE HCL 0.4 MG/ML INJ IVP PRN (08:26)
[2019-02-28] MEDS ORDERED: ALBUTEROL 3 ML DEYVIAL IH PRN (08:26)
[2019-02-28] MEDS ORDERED: ACETAMINOPHEN 500 MG TAB PO PRN (08:26)
[2019-02-28] MEDS ORDERED: HYDROCODONE/APAP 5/325 TAB PO PRN (08:40)
[2019-02-28] MEDS ORDERED: ACETAMINOPHEN 325 MG TAB PO PRN (08:40)
--- NOTE | 2019-02-28 08:51 | EPPROC ---
Electrophysiology Procedure Note: Date: 02/28/2019 [employer] Tr[employer] Machine Operator: Paras Chowdary MD Procedures: Comprehensive EP study with attempted induction of arrhythmia -17273 Implantation of cardiac loop recorder -72065 Indications: 73-year-old female with recurrent syncope, suspicious for vasovagal mechanism. She has undergone workup with ambulatory monitoring, which was notable for nonsustained monomorphic VT. Due to syncope with documented nonsustained VT, EP study for VT inducibility is recommended, with implantation of ICD versus ILR based on the diagnostic study. Techniques: Following informed consent, the patient was brought to the EP lab in a fasting nonsedated state, in sinus rhythm. IV sedation was provided by the anesthesiology service. Bilateral groins were prepped and draped in usual sterile fashion. IV antibiotics were administered. Under ultrasound guidance, vascular access was obtained x1 in the right femoral vein with placement of a 7 [place] access sheath. A quad catheter was advanced under fluoroscopic guidance , 1st to the his position, then to RV apical position where program stimulation was performed, then to RV outflow tract position where program stimulation was performed. Baseline rhythm was sinus PP 708ms DC 170ms QRS 92ms QT 376ms AH 80ms HV 56ms Program stimulation was performed using the 6 step [place] protocol from the RV apical and RV OT positions. No significant ventricular arrhythmias were induced with the protocol. VERP from RVa 350/220ms, 400/230ms, 600/240ms VERP from RVOT 350/200ms, 400/210ms, 600/230ms At the completion of the diagnostic study, the quad catheter was removed, the sheath was aspirated and flushed, then removed; manual pressure was held until hemostasis. The anterior chest was then prepped and draped in usual sterile fashion. 1% lidocaine was infiltrated at the left sternal border, 4th intercostal space. A skin incision was made in this location. The cardiac loop recorder device was injected into the subcutaneous tissues, parallel to the long axis of the heart. The incision was closed with a single resorbable suture, and dressed with Steri-Strips. The patient tolerated the procedure well. EBL: Minimal Complications: None Assessment: Comprehensive EP study demonstrating no evidence of inducible VT Successful implantation of cardiac loop recorder for ongoing workup of unexplained syncope Plan: Discharge to home today Ten days of right groin precautions Keep incision dry for 2 days Device clinic follow-up in 1-2 weeks for incision check Patient Problems: Problems Problem Status Onset Syncope Acute
[2019-02-28] MEDS ORDERED: INSULIN REGULAR HUMAN 100 UNIT/ML UNIT SC ONE (08:55)
--- NOTE | 2019-03-04 15:28 | CPEKG ---
Test Reason : OPEN Blood Pressure : / mmHG Vent. Rate : 085 BPM Atrial Rate : 086 BPM P-R Int : 171 ms QRS Dur : 097 ms QT Int : 385 ms P-R-T Axes : 064 030 058 degrees QTc Int : 458 ms Sinus rhythm Confirmed by Fred John ([id number]) on 03/04/2019 3:28:00 PM Referred By: Paulo Chowdary Confirmed By:Fred John
== END 2019-02-28 11:46 | disposition home or self-care (01) ==
LOC: FCATH 06:01
PROVIDERS: ATTEND Internal Medicine Cardiovascular Disease
DX: R55 Syncope and collapse (principal); I47.2 Ventricular tachycardia; I12.9 Hypertensive chronic kidney disease with stage 1 through stage 4 chronic kidney disease, or unspecified chronic kidney disease; N18.3 Chronic kidney disease, stage 3 (moderate); E11.22 Type 2 diabetes mellitus with diabetic chronic kidney disease; E78.5 Hyperlipidemia, unspecified
CPT/HCPCS: 33285; 93005; 93620; C1730; C1764; J0690; J1200; J1644; J1815; J2704